=== PATIENT | male | born 1975 | race Two or more races ===

== ENCOUNTER 2023-04-25 15:12 | Emergency (ER) | payer MEDICAID ==
[~2023-04-25] VITALS: Ht 177.8 cm; Wt 86.2 kg
[2023-04-25] MEDS ORDERED: diphenhydrAMINE HCL 50 MG CAPSULE ONE (15:51)
[2023-04-25] MEDS ORDERED: FAMOTIDINE (20 MG) 20 MG TABLET ONE (15:51)
[2023-04-25] MEDS ORDERED: predniSONE 20 MG TABLET ONE (15:51)
[2023-04-25] MEDS ORDERED: PRED50TA PO (15:53)
[2023-04-25] MEDS ORDERED: predniSONE 50 MG TABLET PO ONE (16:00)
[2023-04-25] MEDS ORDERED: diphenhydrAMINE HCL 25 MG CAPSULE PO ONE (16:00)
[2023-04-25] MEDS ORDERED: FAMOTIDINE (20 MG) 20 MG TABLET PO ONE (16:00)
[2023-04-25 17:08] VITALS: BP 116/73; TEMP 98.4; O2SAT 95
== END 2023-04-25 17:16 | disposition home or self-care (01) ==
LOC: ER 15:19
DX: T63.441A Toxic effect of venom of bees, accidental (unintentional), initial encounter (principal); R20.2 Paresthesia of skin; H53.8 Other visual disturbances; Z91.030 Bee allergy status; Y92.89 Other specified places as the place of occurrence of the external cause
CPT/HCPCS: 99284; Q0163; J7512